=== PATIENT | male | born 1975 | race Caucasian/White ===

== ENCOUNTER 2017-09-19 23:46 | Emergency (ER) | payer MEDICAID, OTHER ==
[~2017-09-19] VITALS: Ht 185.4 cm; Wt 116.8 kg
[~2017-09-19 23:46] MED LIST: CYCL-1 PO; ONDA4TAB12 PO; ONDA4TAB6 PO; TAMS0.4C32 PO
[2017-09-20] MEDS ORDERED: methylPREDNISolone sod succ 125mg/2ml vial IV ONE (00:10)
[2017-09-20] MEDS ORDERED: albuterol 2.5 MG/3 ML nebule CONTNEB PRN (00:10)
[2017-09-20] MEDS ORDERED: ALBU8HFA PO (02:23)
[2017-09-20] MEDS ORDERED: PRED20TA PO (02:23)
[2017-09-20 02:30] VITALS: BP 131/82
== END 2017-09-20 02:46 | disposition home or self-care (01) ==
LOC: ER 23:46 → CANBEDREQ 09-20 01:50 → ER 09-20 02:46
DX: J45.901 Unspecified asthma with (acute) exacerbation (principal); G89.29 Other chronic pain; Z90.49 Acquired absence of other specified parts of digestive tract; Z98.890 Other specified postprocedural states; Z79.899 Other long term (current) drug therapy
CPT/HCPCS: 71045; 93005; 94644; 94760; 96374; 99285; J2930; 94640; 99284